=== PATIENT | female | born 2000 | race Caucasian/White ===

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

== ENCOUNTER 2021-02-11 19:15 | Emergency (ER) | payer OTHER ==
[~2021-02-11] VITALS: Ht 154.9 cm; Wt 61.4 kg
[2021-02-11 19:18] VITALS: BP 121/70
--- NOTE | 2021-02-11 20:25 | NUR ---
PT SIGNED AMA WITH REGISTRATION
== END 2021-02-11 19:35 | disposition home or self-care (01) ==
LOC: ED 19:30
DX: R51.9 Headache, unspecified (principal); Z53.21 Procedure and treatment not carried out due to patient leaving prior to being seen by health care provider